=== PATIENT | female | born 1985 | race Caucasian/White ===

== ENCOUNTER 2023-06-23 17:02 | Inpatient (IN) | payer BC ==
[2023-06-24 02:23] VITALS: BMI 39.9
[2023-06-24] MEDS ORDERED: Misoprostol 200 MCG TAB PR PRN (02:38)
[2023-06-24] MEDS ORDERED: Tranexamic Acid 1,000 MG/10 ML VIAL IVP PRN (02:38)
[2023-06-24] MEDS ORDERED: Promethazine HCl 25 MG/ML VIAL IM PRN ×2 (02:38→20:45)
[2023-06-24] MEDS ORDERED: Lidocaine 1% (PF) 30 ML VIAL SC PRN (02:38)
[2023-06-24] MEDS ORDERED: Carboprost 250 MCG/ML AMP IM PRN (02:38)
[2023-06-24] MEDS ORDERED: Methylergonovine 0.2 MG/ML VIAL IM PRN (02:38)
[2023-06-24] MEDS ORDERED: hydrALAZINE 20 MG/ML VIAL SLOW IVP PRN (02:38)
[2023-06-24] MEDS ORDERED: Ondansetron PF 4 MG/2 ML Vial IVP PRN ×2 (02:38→20:45)
[2023-06-24] MEDS ORDERED: NS w/ Oxytocin 30 units 500 ML IV SCH ×2 (02:45)
[2023-06-24 02:55] LABS: Hemoglobin 11.4 g/dL (12.0-15.5); Mean Corpuscular HGB CONC 34.1 g/dL (32.0-36.0); Mean Corpuscular Hemoglobin 29.6 pg (27.0-33.0); Mean Corpuscular Volume 86.8 fl (81.6-98.3); Mean Platelet Volume 9.9 fl (7.4-10.4); Platelet Count 291 10x3/uL (150-450); RBC Distribution Width 13.2 % (11.5-14.5); Red Blood Cell (RBC) Count 3.85 10x6/uL (3.90-5.03); White Blood Cell (WBC) Count 9.9 10x3/uL (3.5-10.5)
[2023-06-24 03:19] LABS: HBSAg Index 0.17 S/CO (0-0.99); Hep B Surf Ag - L&D Non-Reactive S/CO (NonReactive)
[2023-06-24] MEDS: Acetaminophen 500 MG TAB PO PRN ×3 (03:19→18:55)
[2023-06-24] MEDS: Lactated Ringer's 1,000 ML IV SCH ×2 (03:19→19:29)
[2023-06-24 03:20] LABS: Syphilis Antibody Nonreactive (Nonreactive); Syphilis Antibody Index 0.02 S/CO (<1.00 Non-Reactive)
[2023-06-24] MEDS: Misoprostol 100 MCG TAB VAG SCH ×2 (07:10→19:29)
[2023-06-24] MEDS ORDERED: Bupivacaine 0.25% HCL 30 ML VIAL ONE (13:27)
[2023-06-24] MEDS ORDERED: Witch Hazel-Glycerin 1 EACH JAR TOP PRN (19:14)
[2023-06-24] MEDS ORDERED: Calcium Carbonate 500 MG ChewTAB PO PRN (19:45)
[2023-06-24] MEDS ORDERED: fentaNYL/Ropivacaine Epidural 100 ML ONE (20:34)
[2023-06-24] MEDS ORDERED: Naloxone HCl 0.4 mg/ml Vial IVP PRN ×2 (20:45)
[2023-06-24] MEDS ORDERED: fentaNYL 2 mcg/Ropivacaine 0.2% Epidural 100 ML CADD EPIDURAL SCH (20:45)
[2023-06-24] MEDS ORDERED: diphenhydrAMINE 50 MG/ML VIAL IVP PRN (20:45)
[2023-06-24] MEDS ORDERED: Lactated Ringer's 500 ML IV PRN (20:45)
[2023-06-24] MEDS ORDERED: ePHEDrine Sulfate 50 MG/10 ML VIAL SLOW IVP PRN (20:45)
[2023-06-24] MEDS ORDERED: Moisturizing Cream (Eucerin) 113 GM JAR TOP PRN (20:45)
[2023-06-24] MEDS ORDERED: Communication Order-Pharmacy FS SCH (20:45)
[2023-06-24] MEDS ORDERED: Pantoprazole 40 MG VIAL IVP SCH (23:59)
[2023-06-25 04:03] LABS: RapidComm Collect By CBN
[2023-06-25 04:04] LABS: RapidComm Collect By CBN; pH (Cord, venous) 7.311 (7.250-7.350)
[2023-06-25] MEDS: Misoprostol 100 MCG TAB VAG SCH (05:08)
[2023-06-25] MEDS: Lactated Ringer's 1,000 ML IV SCH (05:09)
[2023-06-25] MEDS ORDERED: Lanolin Ointment 7 GM TUBE TOP PRN (05:10)
[2023-06-25] MEDS ORDERED: Milk Of Magnesia 30 ML UDCUP PO PRN (05:10)
[2023-06-25] MEDS ORDERED: Bisacodyl 10 MG SUPP PR PRN (05:10)
[2023-06-25] MEDS ORDERED: Misoprostol 200 MCG TAB VAG PRN (05:10)
[2023-06-25] MEDS ORDERED: hydrALAZINE 20 MG/ML VIAL SLOW IVP PRN (05:10)
[2023-06-25] MEDS ORDERED: Boostrix 0.5 ML (Tdap) VIAL (>/=7 yrs of age) IM ONE (05:10)
[2023-06-25] MEDS ORDERED: Methylergonovine 0.2 MG/ML VIAL IM PRN (05:10)
[2023-06-25] MEDS ORDERED: Preparation H Ointment 28 GM TUBE PR PRN (05:10)
[2023-06-25] MEDS ORDERED: Ondansetron PF 4 MG/2 ML Vial IVP PRN (05:10)
[2023-06-25] MEDS ORDERED: Benzocaine-Menthol 82.5 ML CAN TOP PRN (05:10)
[2023-06-25] MEDS ORDERED: NS w/ Oxytocin 30 units 500 ML IV SCH (05:30)
[2023-06-25] MEDS: Ibuprofen 800 MG TAB PO SCH ×3 (05:30→21:34)
[2023-06-25] MEDS: Ferrous Sulfate 325 MG TAB PO SCH ×2 (09:07→16:00)
[2023-06-25] MEDS: Docusate 100 MG CAP PO SCH ×2 (10:36→21:34)
[2023-06-25] MEDS: Prenatal Vitamin 1 TAB PO SCH (10:36)
[2023-06-25] MEDS: Acetaminophen 325 MG TAB PO PRN ×3 (13:03→21:35)
[2023-06-26 03:52] LABS: Hemoglobin 8.3 g/dL (12.0-15.5); Platelet Count 229 10x3/uL (150-450)
[2023-06-26] MEDS: Ibuprofen 800 MG TAB PO SCH ×3 (05:52→20:56)
[2023-06-26] MEDS: Acetaminophen 500 MG TAB PO SCH ×3 (08:26→21:08)
[2023-06-26] MEDS: Ferrous Sulfate 325 MG TAB PO SCH ×2 (08:27→20:57)
[2023-06-26] MEDS: Prenatal Vitamin 1 TAB PO SCH (08:27)
[2023-06-26] MEDS: Docusate 100 MG CAP PO SCH ×2 (08:27→20:57)
[2023-06-26] MEDS: Acetaminophen 325 MG TAB PO PRN (20:56)
[2023-06-27] MEDS: Acetaminophen 325 MG TAB PO PRN ×2 (03:00→08:27)
[2023-06-27] MEDS: Acetaminophen 500 MG TAB PO SCH ×2 (05:12→13:01)
[2023-06-27] MEDS: Ibuprofen 800 MG TAB PO SCH ×2 (06:21→13:21)
[2023-06-27 07:33] VITALS: BP 125/63; TEMP 98
[2023-06-27 07:56] LABS: Hemoglobin 8.4 g/dL (12.0-15.5)
[2023-06-27] MEDS: Docusate 100 MG CAP PO SCH (08:26)
[2023-06-27] MEDS: Ferrous Sulfate 325 MG TAB PO SCH (08:27)
[2023-06-27] MEDS: Prenatal Vitamin 1 TAB PO SCH (08:27)
== END 2023-06-27 13:35 | disposition home or self-care (01) | DRG 806 ==
LOC: CSHLD 06-24 01:28 → CSHPED 06-25 09:29
PROVIDERS: ADMIT Obstetrics & Gynecology; ATTEND Obstetrics & Gynecology
PROC: 3E0P7VZ Introduction of Hormone into Female Reproductive, Via Natural or Artificial Opening (ICD-10-PCS; 2023-06-24)
PROC: 3E033VJ Introduction of Other Hormone into Peripheral Vein, Percutaneous Approach (ICD-10-PCS; 2023-06-24)
PROC: 10E0XZZ Delivery of Products of Conception, External Approach (ICD-10-PCS; principal; 2023-06-25)
PROC: 0KQM0ZZ Repair Perineum Muscle, Open Approach (ICD-10-PCS; 2023-06-25)
PROC: 3E0334Z Introduction of Serum, Toxoid and Vaccine into Peripheral Vein, Percutaneous Approach (ICD-10-PCS; 2023-06-25)
DX: O99.214 Obesity complicating childbirth (principal); D62 Acute posthemorrhagic anemia; Z37.0 Single live birth; E66.9 Obesity, unspecified; Z3A.39 39 weeks gestation of pregnancy; O26.893 Other specified pregnancy related conditions, third trimester; Z67.11 Type A blood, Rh negative; M10.9 Gout, unspecified; O99.892 Other specified diseases and conditions complicating childbirth; K21.9 Gastro-esophageal reflux disease without esophagitis; O99.62 Diseases of the digestive system complicating childbirth; O70.1 Second degree perineal laceration during delivery; O42.02 Full-term premature rupture of membranes, onset of labor within 24 hours of rupture; O76 Abnormality in fetal heart rate and rhythm complicating labor and delivery; O90.81 Anemia of the puerperium
CPT/HCPCS: 36415; 51702; 82805; 85014; 85018; 85027; 85049; 85461; 86780; 86850; 86870; 86900; 86901; 87340; 90384; 96372; J2405; J2590; J7120; S0020